=== PATIENT | male | born 2000 | race Caucasian/White ===

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

== ENCOUNTER 2020-02-12 12:43 | Emergency (ER) | payer OTHER, MEDICAID ==
[2020-02-12] MEDS ORDERED: NALOXONE HCL INJ 2 MG/2 ML DISP.SYRIN IV ONE ×2 (13:00→13:07)
--- NOTE | 2020-02-12 13:15 | ER Document Report ---
Entered by MARICHUY GROVER SCRIBE 02/12/20 1254 Acting as scribe for:RIP GUZMAN MD ED General - General Stated Complaint: UNRESPONSIVE Time Seen by Provider: 02/12/20 12:54 Mode of Arrival: Stretcher Information source: [facility] Records Cannot obtain history due to: Unstable vital signs, Altered mental status Notes: This 19 year old male patient was brought to the emergency room by friends. Nurse was summoned to check him in the parking lot. She reported that he was unresponsive pulseless and thought he may have taken to gasping type breath. She reports CPR was started in the pickup truck, he was transferred to a stretcher and he was brought into the emergency room and taken to room 5, maintaining CPR during the transfer. When I entered the room, the patient was on a stretcher with chest compressions and bag valve mask ventilation being done. He was quite pale, pupils were fixed and dilated, and there was no palpable pulse without chest compressions. He was placed on a bus driver/monitor and was in asystole. Intubation was attempted using Kory vision video laryngoscope and a 7.5 endotracheal tube. The mouth had some very thick saliva. Suction was not available on the initial attempt. The epiglottis and cords were visualized very anterior and teeth were difficult to separate. The tube was passed and appeared to go through the cords, but again there was considerable saliva obscuring the view. There was initial condensation seen in the tube, but no CO2 color change. Auscultation suggested the tube was in the esophagus so it was removed and additional bagging was resumed, chest compressions were maintained. He did receive 2 amps of epinephrine and 4 mg of Narcan through the I/O that was established. Suction was made available, an additional attempt to intubate was made, however I could not get the suction catheter tip up to the cords to get adequate visualization, so the second intubation attempt was aborted. At that point the code had been going on for 12 minutes in room 5, and a few minutes prior to being taken into the room. He remained fixed and dilated, his skin was quite pale, I noticed that his tongue was very pale. The monitor remained asystole. The code was called at 12:50 PM. Reviewing the hospital records shows the patient had a past medical history of asthma. I was not able to talk with the friends who brought the patient to the hospital so at this point I do not have any further history about what occurred prior to his arrival at the emergency room. TRAVEL OUTSIDE OF THE [place] IN LAST 30 DAYS: No - Related Data Allergies/Adverse Reactions: amoxicillin trihydrate [From Augmentin] Allergy (Verified 08/15/15 08:06) Potassium Clavulanate * [From Augmentin] Allergy (Verified 08/15/15 08:06) Past Medical History - General Information source: [facility] Records Cannot obtain history due to: Other - CPR in progress - Social History Smoking Status: Unknown if Ever Smoked Family History: Reviewed & Not Pertinent Pulmonary Medical History: Reports: Hx Asthma Skin Medical History: Reports Hx Eczema Past Surgical History: Reports: Hx Orthopedic Surgery - Immunizations Immunizations up to date: Yes Hx Diphtheria, Pertussis, Tetanus Vaccination: Yes Review of Systems - Review of Systems -: Yes ROS unobtainable due to patient's medical condition Physical Exam - Vital signs Vitals: Temp 95 F L 02/12/20 14:43 Interpretation: Normal, Other - Asystole, apnea - General General appearance: Unresponsive, Other - Pale - HEENT Head: Normocephalic, Atraumatic Pupils: Dilated - Right what, Fixed - Respiratory Respiratory status: Other - Apneic. Bag valve mask ventilation. - Cardiovascular Rhythm: Other - No heart sounds could be heard - Abdominal Inspection: Normal Bowel sounds: Hypoactive - Back Back: Normal - Extremities General upper extremity: Other - Several small almost pinpoint scabs seen on the upper extremities consistent with the patient's history of eczema and possibly scratching himself.. No: Normal color General lower extremity: Normal inspection. No: Normal color - Neurological Neuro grossly intact: No - Unresponsive - Psychological Associated symptoms: Other - Unresponsive - Skin Skin Temperature: Cool Skin Moisture: Dry Skin Color: Pale, Cyanotic Course - Vital Signs Vital signs: Temp Pulse Resp BP Pulse Ox 95 F L 02/12/20 14:43 Discharge - Discharge Clinical Impression: Cardiopulmonary arrest Disposition: I personally performed the services described in the documentation, reviewed and edited the documentation which was dictated to the scribe in my presence, and it accurately records my words and actions.
[2020-02-12] MEDS ORDERED: EPINEPHRINE INJ 1 MG/10 ML DISP.SYRIN ONE (14:20)
== END 2020-02-12 16:47 | disposition expired ==
LOC: ER 12:43
DX: I46.9 Cardiac arrest, cause unspecified (principal); J45.909 Unspecified asthma, uncomplicated; R23.4 Changes in skin texture; Z88.0 Allergy status to penicillin
CPT/HCPCS: 31500; 99285; 92950; 96374; J0171